=== PATIENT | male | born 1995 | race African-American/Black ===

== ENCOUNTER 2024-04-05 07:11 | Emergency (ER) | payer OTHER, SELFPAY ==
[2024-04-05 07:20] VITALS: BP 134/80; PULSE 97; RESP 16; TEMP 36.8; O2SAT 100
--- NOTE | 2024-04-05 08:10 | ED.GENADULT ---
HPI - General Adult General Chief complaint: Upper Respiratory Infection Stated complaint: cough Time Seen by Provider: 04/05/24 07:39 History of Present Illness HPI narrative: 29-year-old male presents emergency department for evaluation for sore throat cough and congestion. Patient states symptoms have been ongoing for the last 2 days. patient denies any chest pain or difficulty breathing. Patient denies any significant past medical history. Patient denies any known sick contacts. Related Data Allergies Allergy/AdvReac Type Severity Reaction Status Date / Time No Known Allergies Allergy Verified 04/05/24 07:11 Review of Systems Review of Systems: All systems reviewed & are unremarkable except as noted in HPI and below Course Course Emergency Course: Patient was updated on the diagnosis of COVID Vital Signs Vital signs: Vital Signs Temperature 98.2 F 04/05/24 07:20 Pulse Rate 97 04/05/24 07:20 Respiratory Rate 16 04/05/24 07:20 Blood Pressure 134/80 04/05/24 07:20 Pulse Oximetry 100 04/05/24 07:20 Oxygen Delivery Room Air 04/05/24 07:20 Temperature 97.8 F 04/05/24 09:07 Pulse Rate 98 04/05/24 09:07 Respiratory Rate 18 04/05/24 09:07 Blood Pressure 100/88 04/05/24 09:07 Pulse Oximetry 99 04/05/24 09:07 Oxygen Delivery Room Air 04/05/24 07:20 Medical Decision Making [facility] Narrative Medical decision making narrative: 29-year-old male presents emergency department for evaluation for viral etiology. Patient was negative for strep negative for influenza RSV was positive for COVID. Patient was updated the results of the workup and plan for her treatment. All questions concerns were addressed patient was well-appearing at time discharge. Differential Diagnosis Differential Diagnosis: Influenza, RSV, COVID, strep throat Vital Signs Vital Signs: Vital Signs Temperature 98.2 F 04/05/24 07:20 Pulse Rate 97 04/05/24 07:20 Respiratory Rate 16 04/05/24 07:20 Blood Pressure 134/80 04/05/24 07:20 Pulse Oximetry 100 04/05/24 07:20 Oxygen Delivery Room Air 04/05/24 07:20 Temperature 97.8 F 04/05/24 09:07 Pulse Rate 98 04/05/24 09:07 Respiratory Rate 18 04/05/24 09:07 Blood Pressure 100/88 04/05/24 09:07 Pulse Oximetry 99 04/05/24 09:07 Oxygen Delivery Room Air 04/05/24 07:20 Lab Data Lab results reviewed: Yes I reviewed the patient's lab results. Labs: Lab Results 04/05/24 Range/Units 08:13 Influenza A (RT-PCR) Negative (Negative) Influenza B (RT-PCR) Negative (Negative) RSV (RT-PCR) Negative (Negative) SARS-CoV-2 RNA (RT-PCR) Positive A (Negative) Group A Strep (PCR) Not detected (Negative) Discharge Plan Discharge Clinical Impression: COVID Patient Disposition: Home, Self-Care Condition: Stable Instructions: Antibiotic Form, COVID-19 (Coronavirus Disease 2019) (ED) Additional Instructions: You were diagnosed with COVID. Tylenol and ibuprofen for fever and for body aches. Drink plenty of fluids. Have close follow-up with your primary care physician. Follow-up/Referrals: UNKNOWN,DOCTOR [Primary Care Provider] -
[2024-04-05 08:42] LABS: Strep Group A RT-PCR NOT DETECTED (Negative)
[2024-04-05 08:53] LABS: Influenza A QL RT-PCR Negative (Negative); Influenza B QL RT-PCR Negative (Negative); RSV RNA, RT-PCR Negative (Negative); SARS-CoV-2 RNA PCR Positive (Negative)
[2024-04-05 09:07] VITALS: BP 100/88; PULSE 98; RESP 18; TEMP 36.6; O2SAT 99
== END 2024-04-05 09:13 | disposition home or self-care (01) ==
PROVIDERS: Emergency Provider Emergency Medicine
DX: U07.1 COVID-19 (principal)
CPT/HCPCS: 87637; 87651; 99283